=== PATIENT | male | born 1990 | race Caucasian/White ===

== ENCOUNTER 2019-09-16 18:32 | Inpatient (IN) | payer OTHER, SELFPAY ==
[~2019-09-16] VITALS: Ht 177.8 cm; Wt 121.1 kg
[2019-09-16 18:40] VITALS: Ht 177.8 cm; Wt 121.1 kg
[2019-09-16 19:55] LABS: BASOPHIL % 0.2 % (0-2); PLATELET COUNT 347 x10^3mcL (130-400)
[2019-09-16 19:58] LABS: RED CELL DISTRIBUTION WIDTH 14.9 % (11.5-14.5)
[2019-09-16 20:23] LABS: UA SPECIFIC GRAVITY <=1.005 (1.005-1.035); microscopic required? YES; urine erythrocyte TRACE (NEGATIVE)
[2019-09-16 20:23] LABS: T3 TOTAL 0.75 ng/mL
[2019-09-16 20:36] LABS: ERYTHROCYTE SED RATE 94 mm/hr (0-15)
[2019-09-16 20:40] LABS: AMPHETAMINE QUAL UR NONE DETECTED (See below)
[2019-09-16] MEDS ORDERED: BUS10 PO (20:40)
[2019-09-16] MEDS ORDERED: MICROZIDE12.5 MG PO (20:40)
[2019-09-16] MEDS ORDERED: LASIX20 MG PO (20:41)
[2019-09-16] MEDS ORDERED: ZESTRIL10 MG PO (20:41)
[2019-09-16] MEDS ORDERED: METOPROLOL SUCC50 M2 PO (20:42)
[2019-09-16 20:43] LABS: ALKALINE PHOSPHATASE 265 U/L (46-116); ALT/SGPT 50 U/L (16-63); AST/SGOT 14 U/L (15-37); BILIRUBIN TOTAL 0.73 mg/dL (0.20-1.00); CALCIUM 9.4 mg/dL (8.5-10.1); CARBON DIOXIDE 31.9 mmol/L (21-32); CHLORIDE SERUM 91 mmol/L (98-107); CREATININE SERUM 1.2 mg/dL (0.7-1.3); GFR1 > 60 mL/min; SODIUM SERUM 133 mmol/L (136-145); TOTAL PROTEIN, SERUM 8.1 g/dL (6.4-8.2)
[2019-09-16] MEDS ORDERED: NORCO1 TA2 (20:43)
[2019-09-16 20:44] LABS: ALBUMIN 2.2 g/dL (3.4-5.0); CK-MB 4.9 ng/mL (0-3.6); FREE T4 1.08 ng/dL (0.76-1.46); T4(THYROXINE) 6.4 ug/dL (4.7-13.3)
[2019-09-16] MEDS ORDERED: IBU800 M2 PO (20:44)
[2019-09-16 20:47] LABS: GLUCOSE SERUM 640 mg/dL (74-106); POTASSIUM SERUM 2.9 mmol/L (3.5-5.1)
[2019-09-17 04:26] VITALS: BP 154/89
[2019-09-17 06:02] VITALS: BP 138/87
[2019-09-17 07:28] LABS: BASOPHIL % 0.1 % (0-2); PLATELET COUNT 303 x10^3mcL (130-400)
[2019-09-17 07:44] LABS: CALCIUM 8.5 mg/dL (8.5-10.1); CARBON DIOXIDE 31.5 mmol/L (21-32); CHLORIDE SERUM 97 mmol/L (98-107); CREATININE SERUM 0.8 mg/dL (0.7-1.3); GFR1 > 60 mL/min; GLUCOSE SERUM 354 mg/dL (74-106); SODIUM SERUM 138 mmol/L (136-145)
[2019-09-17 07:48] LABS: POTASSIUM SERUM 2.9 mmol/L (3.5-5.1)
[2019-09-17 08:00] VITALS: BP 126/71
[2019-09-17 21:56] LABS: APPEARANCE FLUID TURBID; COLOR FLUID PALE YELLOW; RBC FLUID 250 /cumm; SOURCE FLUID THORACENTESIS; WBC FLUID 794750 /cumm
[2019-09-17 21:57] LABS: LYMPHOCYTE FLUID 34 %; MONOCYTE FLUID 7 %
[2019-09-17 21:59] VITALS: BP 141/91
[2019-09-18 05:59] VITALS: BP 129/74
[2019-09-18 07:29] LABS: BASOPHIL % 0.3 % (0-2); CALCIUM 8.6 mg/dL (8.5-10.1); CHLORIDE SERUM 97 mmol/L (98-107); CREATININE SERUM 0.8 mg/dL (0.7-1.3); GFR1 > 60 mL/min; GLUCOSE SERUM 309 mg/dL (74-106); PLATELET COUNT 285 x10^3mcL (130-400); RED CELL DISTRIBUTION WIDTH 14.7 % (11.5-14.5); SODIUM SERUM 136 mmol/L (136-145)
[2019-09-18 07:32] LABS: POTASSIUM SERUM 2.7 mmol/L (3.5-5.1)
[2019-09-18 08:55] VITALS: BP 143/105
[2019-09-18 12:43] VITALS: BP 151/105
[2019-09-18 17:30] VITALS: BP 134/99
[2019-09-18 21:00] VITALS: BP 122/60
[2019-09-19 06:49] VITALS: BP 151/92
[2019-09-19 07:39] LABS: BASOPHIL % 0.1 % (0-2); PLATELET COUNT 310 x10^3mcL (130-400)
[2019-09-19 07:54] LABS: CALCIUM 8.8 mg/dL (8.5-10.1); CARBON DIOXIDE 31.5 mmol/L (21-32); CHLORIDE SERUM 97 mmol/L (98-107); CREATININE SERUM 0.8 mg/dL (0.7-1.3); GFR1 > 60 mL/min; GLUCOSE SERUM 250 mg/dL (74-106); POTASSIUM SERUM 3.3 mmol/L (3.5-5.1); SODIUM SERUM 136 mmol/L (136-145)
[2019-09-19 08:20] LABS: RED CELL DISTRIBUTION WIDTH 14.8 % (11.5-14.5)
[2019-09-19 09:59] VITALS: BP 157/103
[2019-09-19 12:04] VITALS: BP 133/105
[2019-09-19 16:10] VITALS: BP 144/84
[2019-09-19 19:55] VITALS: BP 181/98
[2019-09-20 01:52] VITALS: BP 151/88
[2019-09-20 04:43] VITALS: BP 134/59
[2019-09-20 07:15] LABS: BASOPHIL % 0.6 % (0-2); PLATELET COUNT 330 x10^3mcL (130-400)
[2019-09-20 07:32] LABS: CALCIUM 8.9 mg/dL (8.5-10.1); CARBON DIOXIDE 33.4 mmol/L (21-32); CHLORIDE SERUM 98 mmol/L (98-107); CREATININE SERUM 0.8 mg/dL (0.7-1.3); GFR1 > 60 mL/min; GLUCOSE SERUM 267 mg/dL (74-106); SODIUM SERUM 138 mmol/L (136-145)
[2019-09-20 07:34] LABS: POTASSIUM SERUM 2.8 mmol/L (3.5-5.1)
[2019-09-20 07:44] LABS: RED CELL DISTRIBUTION WIDTH 14.6 % (11.5-14.5)
[2019-09-20 07:51] VITALS: BP 143/80
[2019-09-20 11:38] VITALS: BP 145/87
[2019-09-20 16:43] VITALS: BP 148/87
[2019-09-20 20:01] VITALS: BP 148/96
[2019-09-21 05:27] VITALS: BP 155/98
[2019-09-21 06:45] LABS: BASOPHIL % 0.1 % (0-2); PLATELET COUNT 357 x10^3mcL (130-400)
[2019-09-21 06:54] LABS: RED CELL DISTRIBUTION WIDTH 14.9 % (11.5-14.5)
[2019-09-21 06:56] LABS: CARBON DIOXIDE 32.8 mmol/L (21-32); CHLORIDE SERUM 101 mmol/L (98-107); CREATININE SERUM 0.9 mg/dL (0.7-1.3); GFR1 > 60 mL/min; GLUCOSE SERUM 276 mg/dL (74-106); MAGNESIUM 2.1 mg/dL (1.8-2.4); POTASSIUM SERUM 3.3 mmol/L (3.5-5.1); SODIUM SERUM 139 mmol/L (136-145)
[2019-09-21 08:28] VITALS: BP 164/106
[2019-09-21 12:25] VITALS: BP 156/108
[2019-09-21 17:34] VITALS: BP 164/98
[2019-09-21 20:46] VITALS: BP 150/101
[2019-09-22 05:42] VITALS: BP 161/108
[2019-09-22 06:39] LABS: CALCIUM 8.9 mg/dL (8.5-10.1); CARBON DIOXIDE 31.3 mmol/L (21-32); CHLORIDE SERUM 100 mmol/L (98-107); CREATININE SERUM 0.8 mg/dL (0.7-1.3); GFR1 > 60 mL/min; GLUCOSE SERUM 238 mg/dL (74-106); POTASSIUM SERUM 3.1 mmol/L (3.5-5.1); SODIUM SERUM 138 mmol/L (136-145)
[2019-09-22 06:42] LABS: BASOPHIL % 0.4 % (0-2); PLATELET COUNT 363 x10^3mcL (130-400)
[2019-09-22 06:48] LABS: RED CELL DISTRIBUTION WIDTH 14.7 % (11.5-14.5)
[2019-09-22 08:30] VITALS: BP 174/111
[2019-09-22 13:58] VITALS: BP 155/97
[2019-09-22 17:20] VITALS: BP 145/88
[2019-09-22 20:35] VITALS: BP 151/90
[2019-09-23 05:33] VITALS: BP 145/91
[2019-09-23 07:45] VITALS: BP 166/88
[2019-09-23 13:50] VITALS: BP 151/100
[2019-09-23 16:17] VITALS: BP 167/114
[2019-09-23 17:45] VITALS: BP 131/77
[2019-09-23 19:55] VITALS: BP 155/94
[2019-09-24] VITALS (11 sets, daily range): BP systolic 134–169; BP diastolic 48–119
[2019-09-25 05:09] VITALS: BP 121/88
[2019-09-25 06:38] LABS: BASOPHIL % 0.4 % (0-2); PLATELET COUNT 364 x10^3mcL (130-400)
[2019-09-25 06:47] LABS: RED CELL DISTRIBUTION WIDTH 15.6 % (11.5-14.5)
[2019-09-25 07:15] LABS: CARBON DIOXIDE 32.5 mmol/L (21-32); CHLORIDE SERUM 100 mmol/L (98-107); GFR1 > 60 mL/min; GLUCOSE SERUM 236 mg/dL (74-106); POTASSIUM SERUM 3.6 mmol/L (3.5-5.1); SODIUM SERUM 139 mmol/L (136-145)
[2019-09-25 07:48] VITALS: BP 150/99
[2019-09-25 11:56] VITALS: BP 141/101
[2019-09-25 12:05] LABS: CHOLESTEROL/HDL RATIO 5.1
[2019-09-25 16:25] VITALS: BP 147/95
[2019-09-25 20:38] VITALS: BP 157/84
[2019-09-26 05:17] VITALS: BP 144/93
[2019-09-26 06:34] LABS: BASOPHIL % 0.5 % (0-2); PLATELET COUNT 334 x10^3mcL (130-400)
[2019-09-26 06:51] LABS: RED CELL DISTRIBUTION WIDTH 15.6 % (11.5-14.5)
[2019-09-26 07:19] LABS: CALCIUM 8.8 mg/dL (8.5-10.1); CARBON DIOXIDE 30.2 mmol/L (21-32); CHLORIDE SERUM 100 mmol/L (98-107); CREATININE SERUM 0.8 mg/dL (0.7-1.3); GFR1 > 60 mL/min; GLUCOSE SERUM 228 mg/dL (74-106); POTASSIUM SERUM 3.2 mmol/L (3.5-5.1); SODIUM SERUM 137 mmol/L (136-145)
[2019-09-26 09:48] VITALS: BP 165/110
[2019-09-26 18:36] VITALS: BP 137/89
[2019-09-26 20:32] VITALS: BP 152/85
[2019-09-27 05:02] VITALS: BP 134/84
[2019-09-27 07:02] LABS: BASOPHIL % 0.2 % (0-2); PLATELET COUNT 349 x10^3mcL (130-400)
[2019-09-27 07:09] LABS: CALCIUM 9.2 mg/dL (8.5-10.1); CARBON DIOXIDE 29.9 mmol/L (21-32); CHLORIDE SERUM 100 mmol/L (98-107); GFR1 > 60 mL/min; GLUCOSE SERUM 220 mg/dL (74-106); POTASSIUM SERUM 3.8 mmol/L (3.5-5.1); SODIUM SERUM 138 mmol/L (136-145)
[2019-09-27 07:11] LABS: RED CELL DISTRIBUTION WIDTH 15.9 % (11.5-14.5)
[2019-09-27 08:17] VITALS: BP 136/83
[2019-09-27 13:21] VITALS: BP 147/94
[2019-09-27 16:26] VITALS: BP 149/94
[2019-09-27 21:06] VITALS: BP 145/89
[2019-09-28 05:48] VITALS: BP 143/85
[2019-09-28 08:17] LABS: BASOPHIL % 0.3 % (0-2); PLATELET COUNT 300 x10^3mcL (130-400)
[2019-09-28 08:19] LABS: RED CELL DISTRIBUTION WIDTH 15.6 % (11.5-14.5)
[2019-09-28 09:04] VITALS: BP 146/97
[2019-09-28] MEDS ORDERED: AUG500 PO (09:48)
[2019-09-28] MEDS ORDERED: LANTUS SOLOS100 U/M1 SC (10:02)
[2019-09-28] MEDS ORDERED: ACCU-CHEK1 EAC2 MC (10:02)
[2019-09-28] MEDS ORDERED: GLUCOTROL5 MG PO (10:02)
[2019-09-28] MEDS ORDERED: KEN10 TOP (10:03)
[2019-09-28 11:41] VITALS: BP 138/76
[2019-09-28 16:56] VITALS: BP 144/81
[2019-09-28 21:10] VITALS: BP 155/105
[2019-09-29 05:40] VITALS: BP 148/94
[2019-09-29 10:57] VITALS: BP 144/94
== END 2019-09-29 13:51 | disposition home or self-care (01) | DRG 720 ==
LOC: ED 18:32 → DU 09-17 01:18 → MU 09-21 13:12
PROVIDERS: Internal Medicine; Specialist; ADMIT Family Medicine
PROC: 0W993ZZ Drainage of Right Pleural Cavity, Percutaneous Approach (ICD-10-PCS; principal; 2019-09-17)
PROC: 0W9930Z Drainage of Right Pleural Cavity with Drainage Device, Percutaneous Approach (ICD-10-PCS; 2019-09-24)
DX: A41.9 Sepsis, unspecified organism (principal); E11.00 Type 2 diabetes mellitus with hyperosmolarity without nonketotic hyperglycemic-hyperosmolar coma (NKHHC); J86.9 Pyothorax without fistula; J90 Pleural effusion, not elsewhere classified; J18.9 Pneumonia, unspecified organism; J01.00 Acute maxillary sinusitis, unspecified; E66.01 Morbid (severe) obesity due to excess calories; L03.211 Cellulitis of face; E87.1 Hypo-osmolality and hyponatremia; E87.6 Hypokalemia; I10 Essential (primary) hypertension; K04.7 Periapical abscess without sinus; F12.90 Cannabis use, unspecified, uncomplicated; Z20.828 Contact with and (suspected) exposure to other viral communicable diseases; I89.8 Other specified noninfective disorders of lymphatic vessels and lymph nodes; F17.210 Nicotine dependence, cigarettes, uncomplicated; Z88.8 Allergy status to other drugs, medicaments and biological substances; Z79.899 Other long term (current) drug therapy; Z68.38 Body mass index [BMI] 38.0-38.9, adult; Z71.3 Dietary counseling and surveillance; Z79.84 Long term (current) use of oral hypoglycemic drugs
CPT/HCPCS: 32555; 82962; 83880; 84439; 87116; 87206; 87804; G0378; J0171; J0295; J0456; J0696; J1200; J1644; J1815; J2001; J2270; J2543; J3475; J3480; J3490; J7030; J7040; J7060; Q0092; Q9967; U0003-CS